=== PATIENT | female | born 1955 | race Caucasian/White ===

== ENCOUNTER 2021-05-19 02:03 | Emergency (ER) | payer MEDICARE, MEDICAID ==
[~2021-05-19] VITALS: Ht 157.5 cm; Wt 62.0 kg
[~2021-05-19 02:03] MED LIST: CYCL-1 PO; HYDR1TAB PO
[2021-05-19 03:19] VITALS: BP 131/57
[2021-05-19] MEDS ORDERED: ondansetron/PF 4mg/2ml inj IV ONE (03:25)
[2021-05-19] MEDS ORDERED: normal saline 1000ML IV soln IVB ONE (03:25)
[2021-05-19] MEDS ORDERED: pantoprazole 40MG/D5 100ML BAG 100 ML IV ONE (03:25)
[2021-05-19] MEDS ORDERED: pantoprazole 40MG/NS 100ML BAG 100 ML IV ONE (03:30)
[2021-05-19 04:48] LABS: ALANINE AMINOTRANSFERASE 31 U/L (12-78); ALBUMIN/GLOBULIN RATIO 0.8 (1.1-1.5); ALKALINE PHOSPHATASE 48 IU/L (46-116); ANION GAP 7 (8-16); ASPARTATE AMINO TRANSFERASE 25 U/L (10-37); BILIRUBIN,TOTAL 0.4 MG/DL (0.1-1.0); BLOOD UREA NITROGEN 23 MG/DL (7-18); BUN/CREATININE RATIO 9.4 (6.6-38.0); CALCIUM 8.3 MG/DL (8.5-10.1); CHLORIDE 103 MMOL/L (99-107); CREATININE 2.45 MG/DL (0.40-0.90); GLUCOSE 127 MG/DL (70-104); LIPASE 54 U/L (73-393); POTASSIUM 3.6 MMOL/L (3.5-5.1); SODIUM 139 MMOL/L (135-145); TOTAL CARBON DIOXIDE 28.8 MMOL/L (24-32); TOTAL PROTEIN 6.8 G/DL (6.4-8.2); eGFR 20 ML/MIN
[2021-05-19 04:52] LABS: BASOPHILS % (AUTO) 0.5 % (0-1); EOSINOPHILS % (AUTO) 0.1 % (0-6); HEMOGLOBIN 11.1 g/dl (12.0-16.0); LYMPHOCYTES # (AUTO) 1.2 X10'3 (1.1-4.8); LYMPHOCYTES % (AUTO) 19.6 % (21-51); MEAN CORPUSCULAR HEMOGLOBIN 29.8 PG (27.0-31.0); MEAN CORPUSCULAR HGB CONC 33.6 g/dL (33.0-36.5); MEAN CORPUSCULAR VOLUME 88.9 FL (78-98); MEAN PLATELET VOLUME 6.9 FL (7.4-10.4); MONOCYTES # (AUTO) 0.4 X10'3 (0-0.9); MONOCYTES % (AUTO) 7.4 % (2-12); NEUTROPHILS # (AUTO) 4.3 X10'3 (1.8-7.7); NEUTROPHILS % (AUTO) 72.4 % (42-75); PLATELET COUNT 245 X10'3 (140-440); RED BLOOD COUNT 3.72 X10'6 (4.20-5.60); RED CELL DISTRIBUTION WIDTH 14.2 % (11.5-14.5); WHITE BLOOD COUNT 5.9 X10'3 (4.5-11.0)
[2021-05-19 04:56] LABS: CLARITY,URINE CLEAR (Clear); COLOR,URINE YELLOW (Yellow); GLUCOSE, URINE NEGATIVE (Neg); KETONES,URINE NEGATIVE (Neg); LEUKOCYTE ESTERASE ,URINE NEGATIVE (Neg); NITRITES, URINE NEGATIVE (Neg); OCCULT BLOOD,URINE SMALL (Neg); PROTEIN,URINE TRACE mg/dl (Neg); UROBILINOGEN,URINE 0.2 E.U/dL (0.2-1.0)
[2021-05-19 05:05] LABS: UA COLLECTION TYPE CLN CATCH MIDSTREAM
[2021-05-19 05:19] LABS: FINE GRANULAR CAST 0-3 /LPF (NEGATIVE)
[2021-05-19 05:20] LABS: BACTERIA,URINE FEW /HPF (Neg); MUCUS STRANDS FEW /LPF (Neg); SQUAMOUS EPITHELIAL CELL,UR MODERATE /LPF (FEW); WBC,URINE 0-4 /HPF (0-4)
== END 2021-05-19 06:00 | disposition home or self-care (01) ==
LOC: ER 02:03
DX: R10.30 Lower abdominal pain, unspecified (principal); K59.00 Constipation, unspecified; I25.10 Atherosclerotic heart disease of native coronary artery without angina pectoris; E78.00 Pure hypercholesterolemia, unspecified; Z90.49 Acquired absence of other specified parts of digestive tract; Z56.0 Unemployment, unspecified; Z88.8 Allergy status to other drugs, medicaments and biological substances; Z79.899 Other long term (current) drug therapy
CPT/HCPCS: 36415; 74022; 80053; 81001; 83690; 85025; 96374; 96375; 99284; C9113; J2405; J7030; 96365

== ENCOUNTER 2022-10-03 09:27 | Day surgery (SDC) | payer MEDICARE, MEDICAID ==
[~2022-10-03] VITALS: Ht 160 cm; Wt 74.8 kg
[~2022-10-03 09:27] MED LIST changes: +MIDAZolam 1mg/ml 10ml vial IV ONE; +normal saline 1000ml 1,000 ML IV SCH
[2022-10-03] MEDS ORDERED: normal saline 1000ml 1,000 ML IV SCH (10:10)
[2022-10-03] MEDS ORDERED: fentaNYL/PF 50MCG/1 ML 2ML syringe IV ONE (10:10)
[2022-10-03] MEDS ORDERED: MIDAZolam 1mg/ml 10ml vial IV ONE (10:10)
--- NOTE | 2022-10-03 11:50 | NUR ---
Patient in normal sinus rhythm. Cardioversion procedure cancelled. Patient to continue current medications and resume normal diet. Follow up in office 10/16/22 @[id number]. Patient left with all known belongings.
== END 2022-10-03 11:50 | disposition home or self-care (01) ==
LOC: SSTAY O 09:27
PROVIDERS: ATTEND Internal Medicine Cardiovascular Disease
DX: I48.91 Unspecified atrial fibrillation (principal); Z53.8 Procedure and treatment not carried out for other reasons
CPT/HCPCS: 93005; A4620; J7030

== ENCOUNTER → 2025-02-03 | Outpatient (CLI) | payer MEDICARE, MEDICAID ==
[~2025-02-03] MED LIST changes: -MIDAZolam 1mg/ml 10ml vial IV ONE; -normal saline 1000ml 1,000 ML IV SCH
--- NOTE | 2025-02-03 11:34 | RADIOLOGY REPORT ---
MRI Abdomen, without IV Contrast Exam Date: 02/03/2025 09:37 AM Comparison: None History: LIVER LESION Technique: Multisequence multiplanar MRI images were obtained of the abomen. Findings: Cardiomegaly. Liver: Bilobar hepatic cysts are present. For example, segment 4 cyst measures 3.2 cm and right inferior hepatic lobe, segment 6 cyst measures 1.7 cm. Spleen: Unremarkable. Pancreas: T2 hyperintense cystic lesion at the pancreatic head/ body junction measures 2.0 cm. No main pancreatic duct dilation. Lesion May communicate with the main pancreatic duct. Gallbladder and ducts: Post cholecystectomy. The cystic duct, right and left hepatic ducts, common hepatic duct, and common bile ducts are unremarkable. The pancreatic duct is within normal limits. Adrenal glands: Unremarkable. Kidneys: Normal enhancement without suspicious lesions or hydronephrosis. Bilateral renal cysts are present measuring up to 1 cm in the left midpole and 2.6 cm in the right lower pole. Visualized bowel: Grossly unremarkable. Vasculature: Unremarkable. Lymphadenopathy: No evidence for lymphadenopathy. Ascites: Absent. Musculoskeletal: Bone marrow signal is normal. IMPRESSION: Limited examination secondary to lack of intravenous contrast administration. Probable benign bilobar hepatic cysts measuring up to 3.2 cm in segment 4. Incompletely characterized T2 hyperintense cystic lesion at the pancreatic head/ body junction measuring 2.0 cm. Differential considerations could include IPMN or pancreatic cyst. Recommend further evaluation with MRI of the abdomen /MRCP without and with intravenous contrast.
== END | disposition home or self-care (01) ==
LOC: MRI02 08:36
PROVIDERS: ATTEND Nurse Practitioner Family
DX: K76.9 Liver disease, unspecified (principal); N28.1 Cyst of kidney, acquired; I51.7 Cardiomegaly; Z90.49 Acquired absence of other specified parts of digestive tract
CPT/HCPCS: 74181